=== PATIENT | male | born 1970 | race Caucasian/White ===

== ENCOUNTER 2024-10-20 16:51 | Emergency (ER) | payer MEDICARE, OTHER, SELFPAY ==
[2024-10-20 16:53] VITALS: BP 145/104
[2024-10-20 18:31] VITALS: BP 110/93
[2024-10-20 18:41] LABS: % Basophils 0.7 % (0-2); % Eosinophils 0.6 % (0-6); % Immature Granulocytes 0.4 % (0-0.5); % Lymphocytes 20.5 % (20.5-51.1); % Monocytes 6.9 % (1.7-9.3); % Neutrophils 70.9 % (42.2-75.2); Absolute Basophils 0.1 10^3/uL (0-0.2); Absolute Eosinophils 0.1 10^3/uL (0-0.7); Absolute Immature Granulocytes 0.1 10^3/uL (0-0.05); Absolute Lymphocytes 2.3 10^3/uL (1.2-3.4); Absolute Monocytes 0.8 10^3/uL (0.1-0.6); Absolute Neutrophils 7.9 10^3/uL (1.4-6.5); Hematocrit 49.5 % (39.0-52.0); Hemoglobin 17.1 g/dL (13.0-18.0); Mean Corp Hgb Conc. 34.5 g/dL (33.0-37.0); Mean Platelet Volume 10.4 fL (7.4-10.4); Nucleated Red Blood Cells % 0 % (-); Platelet Count 402 10^3/uL (130-400); Red Blood Cell Count 5.89 10^6/uL (4.70-6.10); Red Cell Dist. Width 12.2 % (11.5-14.5); White Blood Cell Count 11.2 10^3/uL (4.8-10.8)
[2024-10-20 18:57] LABS: D-Dimer < 0.27 ug/mlFEU (0.00-0.50)
[2024-10-20 19:00] VITALS: BP 116/87
[2024-10-20 19:04] LABS: ALT (SGPT) 39 U/L (0-50); AST (SGOT) 26 U/L (17-59); Alkaline Phosphatase 76 U/L (38-126); Blood Urea Nitrogen 20 mg/dl (9-20); Calcium 9.8 mg/dl (8.4-10.2); Carbon Dioxide 24 mmol/L (22-30); Chloride 108 mmol/L (98-107); Glucose 100 mg/dl (70-99); Potassium 5.1 mmol/L (3.5-5.1); Sodium 142 mmol/L (135-145); Total Bilirubin 0.8 mg/dl (0.2-1.3); Total Protein 8.2 g/dl (6.3-8.2); eGFR > 60.00
--- NOTE | 2024-10-20 21:12 | ED.GENMED ---
History of Present Illness
General
Chief Complaint: Breathing Problem
Source: patient
Time Seen by Provider: 10/20/24 17:07
History of Present Illness
History of Present Illness:
Note:
CHIEF COMPLAINT(S)
Cough, hemoptysis, and tachycardia.
HISTORY OF PRESENT ILLNESS
The patient is a 53-year-old male presenting with a persistent cough and episode of hemoptysis. Approximately a month ago, while removing a moldy air conditioning unit without respiratory protection, the patient began experiencing exacerbated
allergy symptoms and morning productive cough, which he describes as �not pleasant.� Around the first Tuesday in September, he developed a sore throat, described as feeling like 'swallowing glass,' along with a significant amount of mucus production and
a slight fever of 99.5�F to 99.6�F. The cough has persisted for two and a half weeks with episodes of green sputum and blood-tinged sputum. A Z-Erwin (azithromycin) was completed from urgent care without symptom resolution. He also reports difficulty
reducing his heart rate, noting episodes of tachycardia reaching the 120s. The patient denies smoking and alcohol use.
ADDITIONAL HISTORY OBTAINED FROM SOURCES OTHER THAN THE PATIENT
Per urgent care records, presumed diagnoses included bronchitis or pneumonia.
CHRONIC MEDICAL CONDITIONS SIGNIFICANTLY AFFECTING CARE
Chronic conditions affecting care: Mild allergy-induced asthma.
SOCIAL HISTORY
The patient denies tobacco and alcohol use.
MEDICATIONS
The patient has been using OTC medications including Mucinex (guaifenesin) and Sudafed (pseudoephedrine). Regular medications include montelukast, cetirizine, azelastine nasal spray, and an albuterol inhaler. He occasionally uses Flovent
(fluticasone) but noted increased albuterol usage recently.
REVIEW OF SYSTEMS
- Constitutional: Reports slight fever and increased heart rate.
- Respiratory: Persistent cough with hemoptysis, green sputum. No shortness of breath reported.
- Cardiovascular: Tachycardia reported.
- Ears, Nose, and Throat: Sore throat approximately two weeks ago.
- Allergic/Immunologic: Exacerbated allergies.
PHYSICAL EXAM
- General: Alert and oriented.
- Head and Neck: No jugular venous distention. Mucous membranes moist.
- Cardiovascular: Regular rate and rhythm, heart rate of 110 bpm, no murmurs.
- Respiratory: Lungs clear bilaterally, equal breath sounds.
- Abdomen: Non-distended.
- Extremities: No edema, warm, and well-perfused.
- Nursing notes reviewed and vital signs reviewed.
PLAN
- Perform blood work, including D-dimer, complete blood count (CBC), and assessment for blood clot in the lungs.
- Imaging of the chest, either chest X-ray or CT, based on lab results.
- Consideration of infectious causes and observation of any allergic responses.
- Monitor heart rate and symptoms of tachycardia.
DIFFERENTIAL DIAGNOSIS
The Differential Diagnosis includes, in no particular order and is not limited to:
- Bronchitis
- Pneumonia
- Pulmonary embolism
- Allergic bronchopulmonary aspergillosis
- Reactive airway disease/asthma exacerbation
- Viral respiratory infection
- Bacterial respiratory infection
- Mold exposure reaction
- Lung abscess
- Lung malignancy
EKG
My independent EKG interpretation is:
- Rhythm: Sinus rhythm at a rate of 122 beats per minute (indicative of sinus tachycardia)
- Heart Rate: 122 beats per minute
- [place] Interval: Normal
- QRS Duration: Normal
- QT Interval: Normal
- [place]: Normal
- Abnormalities: No ischemic changes
Disposition:
MEDICAL DECISION MAKING
1. NUMBER & COMPLEXITY OF PROBLEMS:
Chronic conditions affecting care: allergy-induced asthma. Differential diagnoses considered include bronchitis.
2. DATA REVIEWED:
- Category 1:
- D-dimer: Negative, reducing suspicion for pulmonary embolism.
- Complete blood count (CBC): White blood cell count of 11.2, hemoglobin at 17.1.
- Chemistry: Normal.
- Liver function tests (LFTs): Normal.
- Chest X-ray: No pneumonia.
3. RISK:
Consideration of admission/observation was made due to complexity/risk. However, outpatient management is appropriate based on reassuring work-up, stable vitals, symptom control, and follow-up reliability.
MEDICATION RECONCILIATION
- Sudafed and Mucinex have been taken by the patient.
- A course of steroids prescribed for treatment.
- Albuterol use at home as needed.
PATHOLOGIES TO CONSIDER
- Pulmonary embolism: Ruled out based on negative D-dimer.
- Pneumonia: Ruled out based on chest X-ray results.
PLAN
- Add a course of steroids for treatment.
- Continue albuterol use as needed.
- Recommend follow-up with primary care physician (PCP) for further management.
Past History
Past History
ED Past Medical History: Asthma, GERD, Hypercholesterolemia, Other, Other and Other
ED Past Surgical History: Orthopedic and Other
Social History
Tobacco: Non-smoker
Alcohol: None
Drug: None
Personal: Single
Living: with family
Employment: Not employed
Phy Exam
Physical Exam
Physical Exam:
.
Scores
Heart Failure Risk
Heart Failure Risk Score: Not Applicable
Course
Orders/Labs/Results
Orders:
Orders
10/20/24 16:56
Electrocardiogram (*1) Urgent
Reason for Study: Shortness of Breath
10/20/24 16:57
EKG- Treatment ONCE
10/20/24 18:34
Complete Blood Count/With Diff Urgent
Comprehensive Metabolic Panel Urgent
D-Dimer Urgent
10/20/24 19:19
CR Chest - 2 Views Urgent
Comment:
Reason For Exam: cough, hemoptysis
Abnormal Lab Results
10/20/24
18:34
WBC 11.2 H 10^3/uL
(4.8-10.8)
Plt Count 402 H 10^3/uL
(130-400)
Abs Immat Gran (auto) 0.1 H 10^3/uL
(0-0.05)
Absolute Neuts (auto) 7.9 H 10^3/uL
(1.4-6.5)
Absolute Monos (auto) 0.8 H 10^3/uL
(0.1-0.6)
Chloride 108 H mmol/L
(98-107)
Glucose 100 H mg/dl
(70-99)
10/20/24 18:34
10/20/24 18:34
Vital Signs
Initial and Last Documented VS:
Initial Vital Signs
Temp Pulse Resp BP Pulse Ox
98.5 F 131 19 145/104 96
10/20/24 16:53 10/20/24 16:53 10/20/24 16:53 10/20/24 16:53 10/20/24 16:53
Last Documented Vital Signs
Temp Pulse Resp BP Pulse Ox
98.5 F 101 18 116/87 97
10/20/24 16:53 10/20/24 19:30 10/20/24 19:30 10/20/24 19:00 10/20/24 21:13
*Pulse Oximetry
SaO2: 97
Oxygen Mode of Delivery: Room air
Patient hypoxic: no
*Critical Care Note
Total Time (30-74mins, 75-104mins- exclusive of procedures): Not Applicable
ED Attending Note
-
Portions of this chart may have been created with voice recognition software.� Occasional wrong word or��sound alike� substitutions may have occurred due to the inherent limitations of voice recognition software.
Discharge Plan
Departure
Patient Disposition: Home (Routine Discharge)
Date of Disposition: 10/20/24
Time of Disposition: 21:19
Patient with high blood pressure during this ER visit?: No
Discharge Problem:
Bronchitis
Instructions: Acute bronchitis in adults
Prescriptions:
New
prednisone 10 mg Tablet
See Rx Instructions .ROUTE .COMPLEX Qty: 45 0RF
Rx Instructions:
Take By Mouth:
50 mg daily x3 days, 40 mg daily x3 days,
30 mg daily x3 days, 20 mg daily x3 days,
10 mg daily x3 days
No Action
dicyclomine [Bentyl] 20 MG tablet
20 mg PO DAILY
rizatriptan [Maxalt] 10 MG tablet
10 mg PO PRN PRN (Reason: migraine)
omeprazole [Prilosec] 40 MG capsule,delayed release(DR/EC)
40 mg PO DAILY
cyclobenzaprine 10 MG tablet
10 mg PO BIDPRN PRN (Reason: pain)
cetirizine 10 MG tablet
10 mg PO DAILY
mometasone [Nasonex] 17 GM spray,non-aerosol
1 spray intranasal DAILY
gabapentin 300 MG capsule
200 mg PO BID
albuterol sulfate 1 PUFF HFA aerosol inhaler
2 puff inhalation R Q4HPRN PRN (Reason: SOB)
fluticasone propionate [Flovent HFA] 1 PUFF HFA aerosol inhaler
1 inh inhalation PRN PRN (Reason: asthma)
vitamin B complex 1 TAB tablet
1 tab PO DAILY
hydroxyzine HCl 10 MG tablet
30 mg PO HS
cholecalciferol (vitamin D3) 5,000 UNIT tablet
5,000 unit PO DAILY
omega 4-wap-emg-fish oil 1 EACH capsule
5 ea PO DAILY
alprazolam 0.5 MG tablet
0.5 mg PO HSPRN PRN (Reason: SLEEP) Qty: 0 0RF
mometasone [Nasonex] 17 GM spray,non-aerosol
17 gm NS DAILY
azelastine 1 SPRAY aerosol,spray
1 spray intranasal BID
pantoprazole 40 MG tablet,delayed release (DR/EC)
40 mg PO DAILY Qty: 10 0RF
Referrals:
Pacheco Fortune MD [Family Provider, Internal Medicine]
Activity Restrictions/Additional Instructions:
Please use albuterol every 4 hours as needed and see your doctor in the next 3 to 5 days for follow-up and reevaluation. If symptoms persist pulmonology follow-up may be necessary. Return immediately for difficulty breathing, chest pain, fevers or
any other concern
Interventions
Interventions:
*Risk Screen - Suicide Last Done: 10/20/24 17:39
*General Assessment Last Done: 10/20/24 17:39
*Neglect/Abuse Screening Last Done: 10/20/24 17:39
*ED- Fall Risk Assessment Last Done: 10/20/24 17:39
*Nursing Disposition Last Done: 10/20/24 21:37
ED- Cardiac Assessment Last Done: 10/20/24 17:40
ED- Pulmonary Assessment Last Done: 10/20/24 19:03
Discharge Date and Time
Discharge Date/Time: 10/20/24 21:38
Print Language: [id number]
== END 2024-10-20 21:38 | disposition home or self-care (01) ==
LOC: EMR 16:51
PROVIDERS: EMERGENCY PHYSICIAN Emergency Medicine; FAMILY PHYSICIAN Internal Medicine
DX: J40 Bronchitis, not specified as acute or chronic (principal)
CPT/HCPCS: 99285; 71046; 80053; 85025; 85379; 93005